=== PATIENT | male | born 1970 | race Caucasian/White ===

== ENCOUNTER 2019-08-09 09:07 | Outpatient (CLI) | payer MEDICAID, SELFPAY ==
--- NOTE | 2019-08-09 09:38 | ECG_ITS ---
NAME OF STUDY: LEXISCAN SESTAMIBI STRESS TEST INDICATION: ABNORMAL EKG/SOB, PROCEDURE: At the baseline, the EKG revealed normal sinus rhythm with a nonspecific ST-T changes. The baseline blood pressure was 145/78 mm Hg with a heart rate of 81 beats/min. Lexiscan was infused over a period of 20 seconds. A total of 0.4 milligrams of Lexiscan was infused. The stress phase was continued for a total of 5 minutes. Heart rate at the end of the stress phase was 100 with a blood pressure 158/100. The EKG at the peak infusion revealed more prominent, diffuse nonspecific ST-T changes. Sestamibi was injected 20 seconds after the Lexiscan infusion. Blood pressure at the end of the recovery phase was 165/93 with a heart rate of 97 per minute. CONCLUSION: 1. Nonspecific EKG changes with the LexiScan infusion 2. No LexiScan induced chest pain or cardiac arrhythmia 3. Normal blood pressure and heart rate response 4. Sestamibi/sestamibi perfusion scan pending; see separate report. Electronically Signed On 08-10-2019 16:54:17 [employer]ICE [employer] TRAINER by Viola Mg M.D. [email or web address]
--- NOTE | 2019-08-09 09:39 | NMCV_ITS ---
NM MIBI/MIBI Stress/Rest [id number] Rashawn Gibbs Age: 48 Gender: M : 1970 Exam Date: 08/09/2019 10:12 Ordering Phys: Viola Mg MD ([email or web address]) Technologist: MARIAM Cisneros Exam Location: [facility] Indications: Abnormal EKG, S.O.B. STRESS TEST Please [facility] for full findings IMAGE PROTOCOL Rest/Stress 1 Lexiscan Day Radiopharmaceutical Dose (mCi) Administration Site Administered by Rest: Tc-99m 10.3 IV MARIAM Cisneros Sestamibi Stress:Tc-99m 31.7 IV MARIAM Cisneros Sestamibi Rest: 09-Aug-2019 60 Discovery 630 Stress: 09-Aug-2019 60 Discovery 630 0.4mg Lexiscan. Images obtained in supine and prone position. SPECT RESULTS Technical Quality: Good Raw Data Analysis: Normal, Soft tissue attenuation Image Corrections: No attenuation or motion correction applied Summed Stress Score: 11 Summed Rest Score: 7 Summed Difference Score: 5 PERFUSION FINDINGS Moderate area of severely decreases uptake in the basal mid and apical inferolateral region. Some reversibility was noted in the basal inferolateral and apical lateral region. Moderate area of moderately severe decreases uptake was noted in the basal and mid anterior wall region, with some reversibility in the basal anterior region. Small area of decreased tracer uptake in the basal and mid inferior wall region, with some reversibility FUNCTIONAL RESULTS (calculated via Gated SPECT) Stress Image LV EF (%): 53 Stress EDV (mL):146 TID: 0.79 Stress ESV (mL):68 FUNCTIONAL FINDINGS: Segmental wall motion analysis revealed mild hypokinesis of the anteroapical region IMPRESSIONS #1. 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 #2. Normal LV ejection fraction of 53%. #3. LV wall motion analysis revealing mild hypokinesia of the LV apex. #4. Mildly dilated LV cavity with an end-systolic volume of 68 ml. No similar previous studies are available for comparison Dr Viola Mg MD FACC (Electronically Signed) Final Date: 09 August 2019 19:04 S
[2019-08-09 10:43] VITALS: BMI 44.8
[2019-08-09] MEDS: regadenoson 0.4 Mg/5 ml Syringe IVP (11:10)
[2019-08-09 11:32] VITALS: BP 165/93; PULSE 97
== END 2019-08-09 09:08 | disposition home or self-care (01) ==
LOC: CDL 09:08
PROVIDERS: Family Provider Family Medicine; PCP Radiology Neuroradiology; Visit Provider Internal Medicine Cardiovascular Disease
DX: R94.31 Abnormal electrocardiogram [ECG] [EKG] (principal); R06.02 Shortness of breath
CPT/HCPCS: 78452; 93017; A9500; J2785

== ENCOUNTER 2019-08-21 11:18 | Outpatient (CLI) | payer MEDICAID, SELFPAY ==
[2019-08-21 12:42] LABS: Basophils # 0.1 10^3/uL (0.0-0.1); Basophils % 0.8 %; Eosinophils # 0.3 10^3/uL (0.0-0.8); Eosinophils % 3.6 %; Hematocrit 44.2 % (42.0-52.0); Hemoglobin 14.5 g/dL (11.7-16.6); Lymphocytes # 2.6 10^3/uL (0.8-4.8); Lymphocytes % 29.1 %; Mean Corpuscular HGB Conc 32.8 g/dL (30.0-36.0); Mean Corpuscular Hemoglobin 29.1 pg (28.0-34.0); Mean Corpuscular Volume 88.6 fL (80-94); Monocytes # 0.6 10^3/uL (0.2-0.9); Monocytes % 6.5 %; Neutrophils # 5.3 10^3/uL (1.8-7.7); Neutrophils % 59.7 %; Nucleated Red Blood Cells % 0 %; Platelet Count 330 10^3/cmm (130-400); Red Blood Count 4.99 10^6/uL (4.1-5.3); Red Cell Distribution Width 11.8 % (12.1-15.1); White Blood Count 8.8 10^3/uL (4.0-10.0)
[2019-08-21 12:47] LABS: INR 0.94 (0.8-1.2)
[2019-08-21 12:48] LABS: Partial Thromboplastin Time 28.2 SECONDS (23.9-36.7)
[2019-08-21 13:41] LABS: Anion Gap 14.2 (5-19); Blood Urea Nitrogen 17 mg/dL (6-20); Calcium 10.8 mg/Dl (8.6-10.0); Carbon Dioxide 29 mmol/L (22-29); Chloride 100 mmol/L (98-107); Glomerular Filtration Rate 64.4 mL/min (90-130); Glucose 114 mg/dL (74-109); Osmolality Calculated 285 mOsm/kg (285-295); Potassium 4.2 mmol/L (3.5-5.1); Sodium 139 mmol/L (136-145)
== END 2019-08-21 11:19 | disposition home or self-care (01) ==
LOC: RAD 11:19
PROVIDERS: Family Provider Family Medicine; PCP Radiology Neuroradiology; Visit Provider Internal Medicine Cardiovascular Disease
DX: R06.02 Shortness of breath (principal); R94.39 Abnormal result of other cardiovascular function study
CPT/HCPCS: 80048; 85025; 85610; 85730; 94010; 94726; 94729